=== PATIENT | male | born 1980 | race Caucasian/White ===

== ENCOUNTER → 2022-09-23 | Outpatient (REF) | payer OTHER | LOC: M SMT 15:29 | PROVIDERS: ATTEND Urology | DX: Z30.2 Encounter for sterilization (principal) ==

== ENCOUNTER → 2023-03-18 | Outpatient (REF) | payer OTHER ==
[2023-03-18 15:26] LABS: SEMEN APPEARANCE OPAQUE (OPAQUE); SEMEN VISCOSITY LIQUID (LIQUID); SEMEN VOLUME 4.4 ml (2.0-5.0); WBC CONCENTRATION <=1 M/ml (<=1 M/ml)
== END ==
LOC: M SMT 14:49
PROVIDERS: ATTEND Urology
DX: Z30.2 Encounter for sterilization (principal)

== ENCOUNTER → 2023-09-03 | Outpatient (REF) | payer OTHER ==
[2023-09-03 13:37] LABS: SEMEN APPEARANCE OPAQUE (OPAQUE); SEMEN VISCOSITY LIQUID (LIQUID); SEMEN VOLUME 3.5 ml (2.0-5.0)
[2023-09-03 13:38] LABS: WBC CONCENTRATION <=1 M/ml (<=1 M/ml)
== END ==
LOC: M SMT 13:11
PROVIDERS: ATTEND Urology
DX: Z30.2 Encounter for sterilization (principal)

== ENCOUNTER → 2024-07-11 | Outpatient (REF) | payer OTHER ==
[2024-07-11 11:15] LABS: SEMEN APPEARANCE OPAQUE (OPAQUE); SEMEN VISCOSITY LIQUID (LIQUID); SEMEN VOLUME 6.2 ml (2.0-5.0)
[2024-07-11 11:16] LABS: SEMEN pH 8.5 (7.0-8.0); WBC CONCENTRATION <=1 M/ml (<=1 M/ml)
== END ==
LOC: M SMT 10:53
PROVIDERS: ATTEND Urology
DX: Z30.2 Encounter for sterilization (principal)

== ENCOUNTER → 2024-09-13 | Outpatient (REF) | payer OTHER | LOC: M LAB REF 14:01 | PROVIDERS: ATTEND Urology | DX: Z98.52 Vasectomy status (principal); Z53.8 Procedure and treatment not carried out for other reasons ==

== ENCOUNTER → 2025-03-29 | Outpatient (REF) | payer OTHER ==
[2025-03-29 14:23] LABS: SEMEN APPEARANCE YELLOW (OPAQUE); SEMEN VISCOSITY LIQUID (LIQUID); SEMEN VOLUME 5.2 ml (2.0-5.0); WBC CONCENTRATION <=1 M/ml (<=1 M/ml)
== END ==
LOC: M SMT 14:05
PROVIDERS: ATTEND Urology
DX: Z98.52 Vasectomy status (principal)